=== PATIENT | female | born 1945 | race Caucasian/White ===

== ENCOUNTER 2019-07-02 17:04 | Emergency (ER) | payer MEDICARE, BC, SELFPAY ==
[2019-07-02 17:13] VITALS: BP 156/72; PULSE 68; RESP 16; TEMP 37; O2SAT 99
--- NOTE | 2019-07-02 17:24 | DI.RAD_ITS ---
SYMPTOM/DIAGNOSIS: PAIN, ROLLED ANKLE, LATERAL MALLEOLAR TENDERNESS RIGHT ANKLE: Three views were obtained. There is marked soft tissue swelling of the ankle, particularly adjacent to the lateral malleolus. The ankle mortise appears fairly well maintained. There is a mildly displaced fracture of the distal fibula. No additional fracture is seen.
--- NOTE | 2019-07-02 18:08 | DI.VRAD_ITS ---
EXAM: XR Right Ankle EXAM DATE/TIME: 07/02/2019 5:25 PM CLINICAL HISTORY: 74 years old, female; Right; Patient HX: Rolled ankle, lateral malleolus pain TECHNIQUE: Imaging protocol: XR Right ankle. Views: 3 or more views. COMPARISON: No relevant prior studies available. FINDINGS: Bones/joints: There is an obliquely oriented nondisplaced fracture of the distal fibula. The mortise is intact. Small anterior ankle joint effusion. Soft tissues: Lateral greater than medial malleolus soft tissue swelling. Fat stranding is present within Keger's fat pad. IMPRESSION: Nondisplaced fracture of the distal fibula. Mortise is intact. Significant soft tissue swelling of the lateral malleolus. If clinical concern for intra-articular injury, consider further evaluation with MRI. Dictated and Authenticated by: Ghazal Hammond MD. Ordering:ARPITA Cota MD
--- NOTE | 2019-07-02 18:54 | ED.GENADUL_ITS ---
Discharge Plan Disposition Patient Disposition: HOME Condition: Good Discharge Details Chief Complaint: Orthopedic Clinical Impression: Fibula fracture Primary Care Provider: Segundo Tinsley ED Provider: Beata Hurt Home Meds and New Rx's Prescriptions: Continued multivitamin 1 EACH tablet 1 ea PO DAILY RF: 0 calcium carbonate-vitamin D3 [Caltrate with Vitamin D3] 1 EACH tablet 1 ea PO DAILY RF: 0 tacrolimus 30 GM ointment 1 applic Topical BID PRN RF: 0 clobetasol 15 GM cream 1 applic Topical BID ON W/E PRN RF: 0 Discharge Instructions Instructions: Leg Fracture (ED) Additional Instructions: Rest. Activities as tolerated. Elevate injury to prevent swelling. Ice to the area of discomfort for 15 min. 3-5 times daily. Motrin every 8 hours with food or Tylenol every 6 hours for soreness if needed over the counter for comfort. Followup with orthopedic doctor as discussed for reevaluation. Return for any worsening or concerns sooner if needed. Referrals: Bacilio Ford MD [ [facility] STAFF PHYSICIAN] - Medical Decision Making Patient presents with ankle pain after rolling her ankle while walking in sneakers. Patient presents with a moderate area of swelling and mild ecchymosis to the lateral malleolus of the right leg. X-ray results reveals a nondisplaced fibular fracture. Mortise is intact. Patient ultimately placed in a fracture boot with crutches. Rice encouraged. Orthopedic evaluation recommended. Referral provided. Patient agrees with plan of care. HPI General Date/Time Provider Initiated Documentation: 07/02/19 17:20 . HPI Narrative: Patient presents for rolled ankle. Patient was walking on a wooded trail today and she rolled her right ankle. Patient reports resulting pain with ambulation and lateral ankle swelling. Denies any other sites of pain or injury. Denies neck back or head pain. No fall to the ground. Denies any numbness or tingling. Patient has a history of fracture of the lateral ankle historically. Related Data Home Medications Medication Instructions Recorded Confirmed calcium carbonate-vitamin D3 1 ea PO DAILY tab 04/18/13 07/02/19 [Caltrate with Vitamin D3] multivitamin 1 ea PO DAILY tab 04/18/13 07/02/19 clobetasol 1 applic TOPICAL BID ON W/E PRN 04/11/17 07/02/19 tacrolimus 1 applic TOPICAL BID PRN 06/10/17 07/02/19 Allergies Allergy/AdvReac Type Severity Reaction Status Date / Time No Known Allergies Allergy Verified 06/15/19 10:40 General Stated Complaint: Orthopedic LUCY: 4 Review of Systems Review of Systems CONSTITUTIONAL: The patient denies fevers, chills. EYES: Denies vision changes, blurry vision, or eye pain. ENT: Denies hearing changes, tinnitus, vertigo, sore throat. CARDIAC: Denies chest pain, SOB. RESPIRATORY: Denies cough, sputum. Denies difficulty breathing. GASTROINTESTINAL: Denies abdominal pain, changes in bowel, vomiting or nausea. GENITOURINARY: Denies dysuria, or frequency of urination. MUSCULOSKELETAL: Limping gait and ankle pain noted. NEUROLOGIC: Denies headaches, Denies focal weakness. Denies numbness. INTEGUMENT: Denies rashes. PSYCHIATRIC: Denies behavior changes. Denies anxiety or depression. ENDOCRINOLOGY: Denies fatigue. PSYCHIATRY: Denies depression, agitation or anxiety All systems reviewed & are unremarkable except as noted in HPI and below PFSH Surgical History Biopsy of breast RIGHT;NEG MOHS SURGERY-02/02 Tonsillectomy Family History Mother Essential hypertension Hyperlipidemia Skin cancer Father , age 28? Accidental Maternal Grandfather , age 93 Heart disease Paternal Grandfather , in his 90s No problems noted. Maternal Grandmother , age 95 Essential hypertension Son No problems noted. Daughter No problems noted. Social History Smoking/Tobacco Use Status: Never Alcohol Intake: current Alcohol Intake frequency: 0-2 drinks per day Drug use: Never Substance use type: does not use Caregiver/Support person: No Household members: spouse Housing: house Communication Needs: None Pets and animals: Yes Pets and animals: dog(s) Sexually active: Yes Do you think of yourself as: straight/heterosexual Current gender identity: female What is your relationship status?: How often do you talk on the phone with friends or family?: three or more times per week How often do you get together with friends or relatives?: twice per week How often do you attend restoration or mu-ism services?: 1-3 times per year Do you belong to any clubs or organized social groups?: yes Panel score (0-1 are the most socially isolated patients): 3 What type of physical activity do you participate in: walking Duration: 45-60 minutes/day Frequency: 5-6 times per week Ashley/Jehovah'S Witness: Buddhist Special ashley needs: No Seatbelt use: always Helmet use: Yes Helmet use: always Drive intox or ride w/intox class a regional drivers: No Do you feel safe at home: Yes Do you feel safe in your relationship?: Yes Exam Narrative Exam Narrative: CONST: Healthy appearing patient, in no acute distress. Well hydrated. Alert and alert. HENMT: Head nomocephalic, normal to inspection. Atraumatic. Hearing grossly normal. EYES: General normal appearance. Alignment normal. Eyelids normal. Conjunctiva normal. NECK: Normal visual inspection. FROM. Trachea midline. No Midline tenderness. CHEST: Normal insepection of the chest. RESP: Normal respiratory effort. Speaking full sentences. No cough. No audible wheezing. No retractions. CARDIO: No JVD. MUSCULOSKELETAL: Patient with no knee pain with palpation motion palpation. Achilles tendon intact and nontender. Moderate lateral malleolus tenderness noted and swelling present. Minimal medial malleolus tenderness. No significant dorsal foot pain with palpation. Pulses intact distally. Flexion extension intact with pain. SKIN: Normal. Dry. No rashes. NEURO: Alert and awake. Speech clear. PSYCH: Normal affect. Cooperative. Course Vital Signs Temperature 37 C 07/02/19 17:13 Pulse 68 07/02/19 17:13 Respiratory Rate 16 07/02/19 17:13 Blood Pressure 156/72 H 07/02/19 17:13 Pulse Oximetry 99 07/02/19 17:13 Temperature 37 C 07/02/19 17:13 Temperature Source Temporal Artery Scan 07/02/19 17:13 Pulse 68 07/02/19 17:13 Respiratory Rate 16 07/02/19 17:13 Respiratory Effort Non-Labored 07/02/19 17:16 Blood Pressure 156/72 H 07/02/19 17:13 Blood Pressure Position Sitting 07/02/19 17:13 Pulse Oximetry 99 07/02/19 17:13 Oxygen Delivery Method Room Air 07/02/19 17:13 Oxygen Flow Rate 0 07/02/19 17:13 Pain Level 3 07/02/19 17:18
[2019-07-02 19:07] VITALS: BP 156/72; PULSE 68; RESP 16; TEMP 37; O2SAT 99
== END 2019-07-02 19:10 | disposition home or self-care (01) ==
PROVIDERS: Emergency Provider Physician Assistant; PCP Emergency Medicine
DX: S82.832A Other fracture of upper and lower end of left fibula, initial encounter for closed fracture (principal); X50.9XXA Other and unspecified overexertion or strenuous movements or postures, initial encounter
CPT/HCPCS: 27786; 73610; E0114; L4361

== ENCOUNTER 2019-07-18 08:31 | Outpatient (CLI) | payer MEDICARE, BC, SELFPAY ==
--- NOTE | 2019-07-18 08:21 | DI.RAD_ITS ---
EXAM: XR ANKLE RT COMPLETE INDICATION: FIB FRACTURE. COMPARISON: XR ANKLE RT COMPLETE from 07/02/2019 TECHNIQUE: 2D digital imaging was performed. FINDINGS: When compared with the previous examination, again noted is a nondisplaced fracture involving the dis leah fibula. There has been no interval change and there is nothing to suggest that healing is not pr ogressing satisfactorily
== END 2019-07-18 08:51 ==
PROVIDERS: PCP Emergency Medicine; Referring Provider Emergency Medicine; Visit Provider Student in an Organized Health Care Education/Training Program
DX: S82.64XA Nondisplaced fracture of lateral malleolus of right fibula, initial encounter for closed fracture (principal); W01.0XXA Fall on same level from slipping, tripping and stumbling without subsequent striking against object, initial encounter; X50.9XXA Other and unspecified overexertion or strenuous movements or postures, initial encounter
CPT/HCPCS: 99203; 99213; 73610; L1902

== ENCOUNTER 2023-07-29 12:48 | Outpatient (CLI) | payer MEDICARE, SELFPAY ==
[2023-07-29 12:37] LABS: Calculated LDL 140 mg/dL (<100); Cholesterol 240 mg/dL (<200); HDL Cholesterol 88 mg/dL (40-60); Triglyceride 64 mg/dL (<150)
== END 2023-07-29 12:49 | disposition home or self-care (01) ==
PROVIDERS: PCP Nurse Practitioner Family; Visit Provider Nurse Practitioner Family
DX: E78.5 Hyperlipidemia, unspecified (principal)
CPT/HCPCS: 36415; 80061

== ENCOUNTER 2024-08-01 01:13 | Outpatient (CLI) | payer MEDICARE, SELFPAY ==
--- NOTE | 2024-08-01 07:15 | DI.DEXA_ITS ---
Exam(s) XR DEXA BONE DENSITY W/WO [place] EXAM: XR DEXA BONE DENSITY W/WO [place] CLINICAL HISTORY: menopausal disorder, n95.9 TECHNIQUE: Routine DEXA evaluation of the lumbar spine, hip, or forearm. COMPARISON: DX DEXA BONE DENSITY WITH [place] from 04/26/2012 FINDINGS: Performed on a [employer] unit. Lateral image: There is a Schmorl's node invagination in the mid aspect of the superior endplate of L 3 vertebral body noted. This does not appear to have been evident on the prior study of April 2012 Lumbar Spine total T-score: -2.0. Prior reading in 2011 was -2.5 Hip total T-score:-2.7. Prior reading 12 years ago was -1.5 Independent reading at the level of the femoral neck yields T-score of -3.2 Forearm total T-score: -2.6 IMPRESSION: Bone mineral density measures in the osteoporosis range. Fracture risk is high. 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 World Health Organization criteria for BMD interpretation classify patients: Normal...... T- Score at or above -1.0 Osteopenic... T- Score between -1.0 and -2.5 Osteoporosis... T-Score at or below -2.5
== END 2024-08-01 01:33 ==
LOC: DI 01:13
PROVIDERS: PCP Nurse Practitioner Family; Visit Provider Nurse Practitioner Family
DX: N95.9 Unspecified menopausal and perimenopausal disorder (principal); M81.0 Age-related osteoporosis without current pathological fracture; Z13.820 Encounter for screening for osteoporosis
CPT/HCPCS: 77080

== ENCOUNTER 2024-08-11 03:08 | Outpatient (CLI) | payer MEDICARE, SELFPAY ==
[2024-08-11 08:50] LABS: Anion Gap 8.1 mmol/L (3-11); BUN 22 mg/dL (7-18); CO2 28.9 mmol/L (21.0-32.0); CREATININE 0.9 mg/dL (0.55-1.02); Calcium 9.3 mg/dL (8.5-10.1); Chloride 109 mmol/L (98-107); Cholesterol 225 mg/dL (<200); Estimated GFR 65.44 (mL/min/1.73m2); Glucose 96 mg/dL (74-106); HDL Cholesterol 95 mg/dL (40-60); Potassium 4.2 mmol/L (3.5-5.1); Sodium 146 mmol/L (136-145)
[2024-08-11 08:51] LABS: Triglyceride <25 mg/dL (<150)
[2024-08-11 09:05] LABS: LDL CHOLESTEROL 115 mg/dL (<100)
== END 2024-08-11 03:09 | disposition home or self-care (01) ==
LOC: LBO 03:09
PROVIDERS: PCP Nurse Practitioner Family; Visit Provider Nurse Practitioner Family
DX: Z13.6 Encounter for screening for cardiovascular disorders (principal); Z13.1 Encounter for screening for diabetes mellitus
CPT/HCPCS: 36415; 80048; 80061; 83721

== ENCOUNTER 2025-09-05 00:48 | Outpatient (CLI) | payer MEDICARE, SELFPAY ==
[2025-09-05 08:48] LABS: Anion Gap 6.3 mmol/L (3-11); BUN 18 mg/dL (7-18); CO2 30.7 mmol/L (21.0-32.0); Calcium 9.2 mg/dL (8.5-10.1); Chloride 104 mmol/L (98-107); Cholesterol 269 mg/dL (<200); Glucose 96 mg/dL (74-106); HDL Cholesterol 106 mg/dL (>or=50); Potassium 4.1 mmol/L (3.5-5.1); Sodium 141 mmol/L (136-145)
== END 2025-09-05 00:49 | disposition home or self-care (01) ==
LOC: LBO 00:48
PROVIDERS: PCP Nurse Practitioner Family; Visit Provider Nurse Practitioner Family
DX: Z13.1 Encounter for screening for diabetes mellitus (principal); Z13.6 Encounter for screening for cardiovascular disorders
CPT/HCPCS: 36415; 80048; 80061